=== PATIENT | male | born 2000 | race Caucasian/White ===

== ENCOUNTER → 2020-08-31 | Outpatient (CLI) | payer BC ==
--- NOTE | 2020-09-01 08:01 | Diagnostic Imaging Report ---
INDICATION: Headaches. Blurred vision. TECHNIQUE: Routine non contrast-enhanced axial images were obtained from the skull base to the vertex. Auto Exposure Controls were utilized during the CT exam to meet ALARA standards for radiation dose reduction COMPARISON: None. FINDINGS: The ventricles and cortical sulci are normal in size and contour. There is no midline shift or mass-effect. No acute intra-axial hemorrhage is seen. There are no abnormal areas of increased or decreased density to suggest acute hemorrhage or edema. No extra-axial masses or collections are present. The bony calvarium is intact. The visualized paranasal sinuses are unremarkable. The mastoid air cells are clear. IMPRESSION: 1. No acute intracranial abnormality. No CT evidence of mass, acute infarct or intracranial hemorrhage. Dictated by: Dictated on workstation # [id number]
== END ==
LOC: RAD FS 16:49
PROVIDERS: ATTEND Family Medicine
DX: H53.8 Other visual disturbances (principal); R51.9 Headache, unspecified
CPT/HCPCS: 70450

== ENCOUNTER → 2020-10-30 | Outpatient (CLI) | payer BC ==
[~2020-10-30] MED LIST: GADOBUTROL 10 MMOL/10 ML (GADAVIST) VIAL IV ONE
--- NOTE | 2020-10-30 08:54 | Diagnostic Imaging Report ---
EXAMINATION: MR imaging brain with and without contrast. TECHNIQUE: Multiplanar, multisequence MR imaging of the brain was performed with and without contrast. HISTORY: Dizziness and headaches COMPARISON: None available. FINDINGS: The mitchell-white matter differentiation is normal. No mass effect or midline shift. The ventricles are normal in size and configuration. Basilar cisterns are patent. No evidence for acute ischemia on diffusion weighted images. No hemorrhage is seen on the susceptibility weighted images. There are no intra- or extra-axial fluid collections. The pituitary gland and posterior fossa are normal. Upper cervical spinal cord signal intensity is normal. Thalamus and basal ganglia are normal. Normal flow voids are seen in the intracranial vasculature. Small focus of high signal anterior to the nadege and the cerebrospinal fluid is likely a flow artifact. The marrow signal in the calvarium is normal. The orbits are normal. Paranasal sinuses are normal. Mastoid air cells are clear. No soft tissue abnormality is seen. IMPRESSION: 1. No acute intracranial abnormality. Dictated by: Dictated on workstation # [id number]
== END ==
LOC: RAD 08:00
PROVIDERS: ATTEND Nurse Practitioner
DX: R42 Dizziness and giddiness (principal)
CPT/HCPCS: 70553